=== PATIENT | female | born 1960 | race Caucasian/White ===

== ENCOUNTER 2020-06-26 12:30 | Outpatient (CLI) | payer OTHER, SELFPAY ==
--- NOTE | ~2020-06-26 | CT_ITS ---
EXAMINATION: CT sinus wo con DATE: 06/26/2020 12:59 INDICATION: Sinusitis TECHNIQUE: Computed tomography (CT) of the paranasal sinuses was performed without intravenous contra st. The dose-length product was 282.50 mGy-cm. Automated exposure control and iterative reconstructio n technique were employed. COMPARISON: None FINDINGS: There is mucosal thickening of the right maxillary and ethmoid sinuses. The right ostiomeat al unit is occluded. There is mild rightward nasal septal deviation. Left ostiomeatal unit is patent. Mastoids are pneumatized. No significant mucoperiosteal reaction. There is a right-sided dental Ryann present. IMPRESSION: 1. Moderate right maxillary and ethmoid sinusitis, likely chronic. Reviewed, dictated and finalized at location B. OR ENGINEERING ASSOCIATE
== END 2020-06-26 12:31 | disposition home or self-care (01) ==
PROVIDERS: PCP Internal Medicine; Visit Provider Otolaryngology
DX: J32.0 Chronic maxillary sinusitis (principal); J32.2 Chronic ethmoidal sinusitis; R09.81 Nasal congestion; J34.89 Other specified disorders of nose and nasal sinuses; R09.82 Postnasal drip
CPT/HCPCS: 70486

== ENCOUNTER → 2020-10-12 01:51 | Outpatient (CLI) | payer OTHER, SELFPAY ==
[2020-10-12 19:27] LABS: SARS-CoV-2 RNA PCR Negative
== END ==
PROVIDERS: PCP Internal Medicine; Visit Provider Internal Medicine Gastroenterology
DX: Z01.812 Encounter for preprocedural laboratory examination (principal); Z20.822 Contact with and (suspected) exposure to COVID-19
CPT/HCPCS: C9803; U0003; U0005

== ENCOUNTER 2020-10-12 13:05 | Emergency (ER) | payer OTHER, SELFPAY ==
[2020-10-12 13:07] VITALS: BP 115/92; PULSE 81; RESP 18; TEMP 36.4; O2SAT 99
--- NOTE | 2020-10-12 13:29 | ED.GENADULT ---
HPI - General Adult General Chief complaint: Psychiatric Symptoms Stated complaint: depression Time Seen by Provider: 10/12/20 13:17 Source: patient and family Mode of arrival: ambulatory Limitations: no limitations History of Present Illness HPI narrative: Patient is 60 years old white female presents with feeling overwhelmed in the last few days. Patient was seen by her family physician 1 week ago and try to schedule her for psych evaluation. Patient denies suicidal or homicidal ideation. Patient have some family issues, does not get along with her sibling, her mother recently. Patient used to be on antidepression medication, last use was over 12 years ago. Patient denies any fever, chills, nausea, vomiting, shortness of breath, chest pain or urinary symptoms. Patient also complaining of trouble sleeping at night, cannot stop her thinking. Related Data Home Medications Medication Instructions Recorded Confirmed diphenhydramine HCl 25 mg capsule 25 mg PO HS PRN 05/23/20 10/12/20 Allergies Allergy/AdvReac Type Severity Reaction Status Date / Time ampicillin Allergy Mild Other Verified 10/12/20 13:10 Review of Systems Review of Systems: Narrative: CONSTITUTIONAL: Denies fever, chills, or sweats. EYES: Denies visual changes, redness, or discharge. ENT: Denies rhinorrhea, congestion, sore throat, or otalgia. CARDIOVASCULAR: Denies chest pain, palpitations, or edema. RESPIRATORY: Denies cough or dyspnea. GASTROINTESTINAL: Denies abdominal pain, nausea, vomiting, or diarrhea. GENITOURINARY: Denies dysuria or hematuria. SKIN: Denies rash or itching. MUSCULOSKELETAL: Denies back pain, joint pain, or myalgia. NEUROLOGIC: Denies headache, numbness, or weakness. PSYCHIATRIC: Denies anxiety or depression. [facility] Past Medical History Medical History (Updated 10/12/20 @ 14:20 by Geo Hinkle MD) Depression Surgical History Surgical History History of oral surgery Hx of abdominal surgery Family History Family History Sibling Family history of malignant neoplasm of ovary Father Heart disease Cerebrovascular accident Mother , respiratory failure, COPD Depression Emphysema lung Breast cancer Social History Social History Smoking status: Never smoker Second hand tobacco smoke exposure: No Alcohol intake: current Drinks per week: 3 Substance use: never Substance use type: does not use Gender identity (if verbalized by the patient): Female Spiritual care concerns: No Exam Narrative: Exam Narrative: General appearance: Well-developed, well-nourished, patient is in tears Skin: Normal color Head: Normocephalic, nontraumatic Eyes: Clear conjunctiva ENT: Oropharynx normal, ears normal, nose normal Neck: Supple, nontender Chest and respiratory: Airway patent, no respiratory distress, no accessory muscle use Heart: Regular rate/rhythm Abdomen: Soft, nontender, no organomegaly, quiet bowel sounds Vascular: Normal peripheral pulses, normal capillary refill. Musculoskeletal: Normal range of motion, nontender back Neurologic: Alert and oriented ?3, PURCHASING OFFICER is normal as tested, no gross motor deficit Course Course Emergency Course: Improving Consultations Consultation #1: Dr. Mello. Agreed with starting patient on clonazepam for 1 week and start the patient on Effexor. And he is planning to find a psych consult for patient as soon as possible. Date: 10/12/20 Time: 13:37 Vital Signs Vital signs: Vital Signs Temperature 36.4 C L 10/12/20 13
[2020-10-12] MEDS: LORazepam (*CRX) 0.5 MG TABLET 1 MG PO (13:42)
[2020-10-12 14:54] VITALS: BP 113/87; PULSE 80; RESP 19; O2SAT 99
== END 2020-10-12 14:57 | disposition home or self-care (01) ==
PROVIDERS: Emergency Provider Emergency Medicine; PCP Internal Medicine
DX: F32.9 Major depressive disorder, single episode, unspecified (principal); G47.00 Insomnia, unspecified
CPT/HCPCS: 99283; A9270

== ENCOUNTER 2020-10-15 02:01 | Day surgery (SDC) | payer OTHER, SELFPAY ==
[2020-10-02 10:49] VITALS: BMI 17.8
[2020-10-15 09:29] VITALS: BP 100/64; PULSE 73; RESP 16; TEMP 36.4; O2SAT 98; BMI 16.9
[2020-10-15] MEDS: LACTATED RINGERS 1,000 ML 150 ML IV CONT (09:41)
--- NOTE | 2020-10-15 09:45 | PM.HPGS ---
History of Present Illness History of Present Illness Consent: Risks, benefits, and alternatives have been discussed and questions answered. Patient agrees to proceed with procedure. Chief complaint: melena Narrative: Destiny Steward is a 60 year old female here for first screening colonoscopy Review of Systems Constitutional: Constitutional: Denies headache(s) and Denies weakness Eyes: Eyes: Denies blurry vision ENT: Reports Normal hearing present, Denies headache(s) and Denies neck pain Cardiovascular: Cardiovascular: Denies chest pain and Denies dyspnea Respiratory: Respiratory: Denies dyspnea Gastrointestinal: Gastrointestinal: Reports no additional gastrointestinal complaints Genitourinary: Genitourinary: Denies dysuria Musculoskeletal: Musculoskeletal: Denies neck pain Integumentary/Breasts: Skin/Breast: Denies dry skin Neurologic: Reports Normal hearing present, Denies headache(s) and Denies weakness Psychiatric: Psychiatric: Denies anxiety Endocrine: Endocrine: Denies change in body appearance Hematologic/Lymphatic: Hematologic/Lymphatic: Denies easy bleeding Allergic/Immunologic: Allergic/Immunologic: Denies urticaria PMFSH Past Medical History Medical History (Updated 10/15/20 @ 09:45 by Barry Torres MD) Colon cancer screening Depression Surgical History Surgical History History of oral surgery Hx of abdominal surgery Family History Family History Sibling Family history of malignant neoplasm of ovary Father Heart disease Cerebrovascular accident Mother , respiratory failure, COPD Depression Emphysema lung Breast cancer Social History Social History Smoking status: Never smoker Second hand tobacco smoke exposure: No Alcohol intake: current Drinks per week: 3 Alcohol use details: WINE Substance use: never Substance use type: does not use Gender identity (if verbalized by the patient): Female Spiritual care concerns: No Meds Home Medications and Allergies Home Medications Medication Instructions Recorded Confirmed Type diphenhydramine HCl 25 mg capsule 25 mg PO HS PRN 05/23/20 10/12/20 History zolpidem 5 mg tablet 5 mg PO .hs PRN #30 tablet 05/29/20 10/12/20 Rx clonazepam 0.5 mg PO BID #14 tablet 10/12/20 10/15/20 Rx venlafaxine [Effexor XR] 37.5 mg PO DAILY #7 cap 10/12/20 10/15/20 Rx Allergies Allergy/AdvReac Type Severity Reaction Status Date / Time ampicillin Allergy Mild Other Verified 10/15/20 09:28 Vital Signs Vital Signs - 24 hr 10/15/20 09:29 Temperature 97.5 F L Pulse Rate 73 Respiratory Rate 16 Blood Pressure 100/64 Pulse Oximetry 98 Exam Const: General: comfortable and no acute distress HENMT: General nose exam: Normal nares present Eyes: General: appearance normal, both eyes and all related structures Neck: Neck: no JVD Resp: Auscultation: clear to auscultation bilaterally Cardio: Rate: regular rate Rhythm: regular rhythm GI: Inspection: non-distended GI Palp: Yes Soft to palpation Skin: General skin exam: normal color Neuro: General: gait normal Speech: normal speech Extrem: General: normal to inspection Psych: Mental Status: mental status grossly normal Assessment and Plan Assessment and plan (1) Colon cancer screening: Code(s): Z12.11 - Encounter for screening for malignant neoplasm of colon Status: Acute Assessment and Plan: proceed with colonoscopy
--- NOTE | 2020-10-15 09:46 | WPDANESEPPF ---
Anes - Initial Pre Proc Eval Procedure: Operation Date: 10/15/20 09:45 Proposed Procedures p Colonoscopy - Barry Torres MD Date/Time: 10/15/20 09:46 Surgeon: Barry Torres MD Pre Op Diagnosis: melena Patient Data Age: 60 Gender: F Height: 5 ft 6 in Weight: 47.8 kg Last Vital Signs Temp 97.5 F L 10/15/20 09:29 Pulse 73 10/15/20 09:29 Resp 16 10/15/20 09:29 BP 100/64 10/15/20 09:29 Pulse Ox 98 10/15/20 09:29 Allergies Allergy/AdvReac Type Severity Reaction Status Date / Time ampicillin Allergy Mild Other Verified 10/15/20 09:28 Home Medications Medication Instructions Recorded Confirmed Type diphenhydramine HCl 25 mg capsule 25 mg PO HS PRN 05/23/20 10/12/20 History zolpidem 5 mg tablet 5 mg PO .hs PRN #30 tablet 05/29/20 10/12/20 Rx clonazepam 0.5 mg PO BID #14 tablet 10/12/20 10/15/20 Rx venlafaxine [Effexor XR] 37.5 mg PO DAILY #7 cap 10/12/20 10/15/20 Rx Patient hx anesthesia problems: none Family hx anesthesia problems: none PMFSH Past Medical History Medical History (Updated 10/15/20 @ 09:45 by Barry Torres MD) Colon cancer screening Depression Surgical History Surgical History History of oral surgery Hx of abdominal surgery Family History Family History Sibling Family history of malignant neoplasm of ovary Father Heart disease Cerebrovascular accident Mother , respiratory failure, COPD Depression Emphysema lung Breast cancer Social History Social History Smoking status: Never smoker Second hand tobacco smoke exposure: No Alcohol intake: current Drinks per week: 3 Alcohol use details: WINE Substance use: never Substance use type: does not use Gender identity (if verbalized by the patient): Female Spiritual care concerns: No Anes - Eval Final PreProcedure Day of Procedure 10/15/20 09:46 Patient weight: normal Heart: regular rate and rhythm Lungs: clear to auscultation Airway: Mallampati scale class II Neurological: alert and oriented Last oral intake: >/= 8 hours ASA classification: II Emergent: no Anesthetic plan: proceed Anesthesia type and monitoring: general GIVS and standard monitoring Informed Consent: The patient's anesthetic plan and its attendant risks and benefits were discussed with the patient/family/POA. Questions were solicited and answers provided to the satisfaction of the patient/family/POA.
[2020-10-15 10:08] VITALS: BP 80/41; PULSE 63; RESP 13; O2SAT 98
[2020-10-15 10:18] VITALS: BP 94/54; PULSE 59; RESP 14; O2SAT 100
[2020-10-15 10:28] VITALS: BP 98/63; PULSE 53; RESP 16; O2SAT 100
== END 2020-10-15 10:30 | disposition home or self-care (01) ==
PROVIDERS: PCP Internal Medicine; Visit Provider Internal Medicine Gastroenterology
PROC: 0DJD8ZZ Inspection of Lower Intestinal Tract, Via Natural or Artificial Opening Endoscopic (ICD-10-PCS; CPT 45378; principal; 2020-10-15 09:45)
DX: Z12.11 Encounter for screening for malignant neoplasm of colon (principal); K63.5 Polyp of colon; D12.3 Benign neoplasm of transverse colon; F32.9 Major depressive disorder, single episode, unspecified
CPT/HCPCS: 45385; 88305; C9803; J2001; J2704; J7120; U0003; U0005

== ENCOUNTER 2021-10-02 12:31 | Outpatient (CLI) | payer OTHER, SELFPAY ==
--- NOTE | ~2021-10-02 | MR_ITS ---
EXAMINATION: MR IAC wo/w con DATE: 10/02/2021 13:36 INDICATION: Bilateral sensorineural hearing loss. TECHNIQUE: Magnetic resonance imaging (MRI) of the brain, brainstem, and internal auditory canals was performed without and with 10 mL MultiHance intravenous contrast. Sequences included sagittal and ax ial T1-weighted FSE, axial diffusion-weighted FS EPI, axial T2*-weighted GRE, axial T2-weighted FLAIR Propeller, axial T2-weighted Propeller, small ajfij-vh-xllm coronal FIESTA, small nhulp-fa-qecb troy nal T1-weighted FSE, and small vppoi-oj-ceod axial T1-weighted SPGR. Postcontrast sequences included axial T1-weighted FSE, small uroqv-pa-djiv coronal T1-weighted FSE, and small ylkgv-ua-inbq axial T1- weighted SPGR. Apparent diffusion coefficient (ADC) maps were created. COMPARISON: Sinuses CT 06/26/2020 FINDINGS: There is no intracranial hemorrhage, acute infarction, or abnormal intracranial mass lesion . There are scattered areas of nonspecific increased T2-weighted signal intensity in the cerebral whi te matter, which is within normal limits for the patient's age. The ventricles are normal in size. Th e internal auditory canals and inner and middle ears are normal. The mastoid air cells are normal. Th e orbits are normal. The paranasal sinuses are clear. IMPRESSION: 1. Normal aging brain. Reviewed, dictated and finalized at location A. D KEEPER IMPRESSION: 1. Normal aging brain.
== END 2021-10-02 12:32 | disposition home or self-care (01) ==
PROVIDERS: PCP Internal Medicine; Visit Provider Otolaryngology
DX: H90.3 Sensorineural hearing loss, bilateral (principal)
CPT/HCPCS: 70553; A9577

== ENCOUNTER 2022-09-16 12:50 | Outpatient (CLI) | payer OTHER, SELFPAY ==
--- NOTE | ~2022-09-16 | DEXA_ITS ---
Bone Density Report Name: YADIEL CUEVA Age: 61 Sex: Female Ethnicity: White Date of : 1960 Indication: postmenopausal; screening for osteoporosis; height loss; asthma or emphysema; Referring Provider: MISHEL DONNELLY Study: Bone densitometry was performed. Exam Date: September 16, 2022 Accession number: [id number] Bone Density: Region BMD T-score Z-score Classification AP Spine(L1-L4) 0.663 -3.5 -2.0 Osteoporosis Femoral Neck (Left) 0.541 -2.8 -1.4 Osteoporosis Total Hip (Left) 0.658 -2.3 -1.3 Osteopenia Femoral Neck (Right) 0.516 -3.0 -1.7 Osteoporosis Total Hip (Right) 0.674 -2.2 -1.2 Osteopenia Total Hip Mean 0.666 -2.3 -1.3 Osteopenia World Health Organization criteria for BMD impression classify patients as: Normal (T-score at or above -1.0), Osteopenia (T-score between -1.0 and -2.5), or Osteoporosis (T-score at or below -2.5). 10-year Fracture Risk: FRAX not reported because: Some T-score for Spine Total or Hip Total or Femoral Neck at or below -2.5 Clinical Information Provided by Patient: Has the following medical conditions: Asthma or Emphysema Patient maximum height was 66 Menopause Age: 51 Drinks caffeinated beverages Onset of menses at age 14 Number of children 2 Impression: The patient has osteoporosis, based on the Total Spine T-score. Discussion: HIGH RISK OF FRACTURE. BONE DENSITY IS UNDESIRABLY LOW AT ONE OR MORE SKELETAL SITES, CONSISTENT WITH OSTEOPOROSIS. ALSO, BONE DENSITY IS LOWER THAN EXPECTED FOR AGE AND SEX AT ONE OR MORE SKELETAL SITES; RECOMMEND A DILIGENT SEARCH FOR SECONDARY CAUSES OF BONE LOSS. This patient's lowest T-score meets the World Health Organization's (WHO) criteria for osteoporosis at one or more sites (T-score -2.5 or below). In untreated patients, the risk of osteoporotic fracture increases approximately two-fold for each 1.0 SD decrease in T-score. Low bone density is not the only risk factor for fracture; also consider factors such as patient's age, frailty or poor health, risk of falling, risk of injury, previous osteoporotic fracture, family history of osteoporosis, cigarette smoking, low body weight, etc. Not everyone with low bone mineral density has osteoporosis; osteomalacia and other metabolic bone disorders should also be considered. Patients who have osteoporosis should be evaluated for specific diseases and conditions (secondary causes) that may cause or contribute to bone loss. The [place] Association [employer] Clinical Endocrinologists (AACE) and National Osteoporosis Foundation (NOF) recommend pharmacologic intervention for all postmenopausal women whose T-score is in this range. Also, this patient's bone mineral density is below the range considered normal for healthy age-, sex-, and race-matched controls at least one site (Z-sco
== END 2022-09-16 12:51 | disposition home or self-care (01) ==
PROVIDERS: PCP Internal Medicine; Visit Provider Internal Medicine
DX: Z13.820 Encounter for screening for osteoporosis (principal); Z78.0 Asymptomatic menopausal state; M81.0 Age-related osteoporosis without current pathological fracture; M85.89 Other specified disorders of bone density and structure, multiple sites
CPT/HCPCS: 77080

== ENCOUNTER 2023-07-02 11:27 | Outpatient (CLI) | payer OTHER, SELFPAY ==
[2023-07-02 12:35] LABS: Appearance Urine Clear (Clear); Bilirubin Urine Negative (Negative); Blood Urine Negative (Negative); Color Urine Yellow (Yellow); Glucose Urine UA Negative (Negative); Ketones Urine Negative (Negative); Leukocyte Esterase Ur Negative LEU/UL (NEGATIVE); Nitrate Urine Negative (Negative); Protein Urine Negative (Negative); Specific Grav Ur 1.004 (1.001-1.035); Urobilinogen Urine 0.2 mg/dL (<2.0); pH Urine 7.5 (5.0-9.0)
[2023-07-02 12:40] LABS: Add Urine Microscopic? NO
== END 2023-07-02 11:28 | disposition home or self-care (01) ==
PROVIDERS: PCP Internal Medicine; Visit Provider Physician Assistant
DX: R30.0 Dysuria (principal)
CPT/HCPCS: 81003; 87086

== ENCOUNTER 2023-10-06 15:36 | Outpatient (CLI) | payer OTHER, SELFPAY ==
--- NOTE | ~2023-10-06 | MM_ITS ---
EXAMINATION: MM screening tushar BI w umm HISTORY: Screening mammogram TECHNIQUE: Craniocaudal and mediolateral oblique 3-D tomosynthesis images were obtained and synthetic 2-D images were generated. CAD analysis was submitted and interpreted. COMPARISON: No prior mammogram is available for comparison at this institution. BREAST PARENCHYMAL COMPOSITION: The breasts are heterogeneously dense, which may obscure small masses . FINDINGS: There is no evidence of suspicious mass, calcification, or architectural distortion to sugg est malignancy in either breast. There has been no suspicious interval change. IMPRESSION: 1. No mammographic evidence of malignancy. 2. Recommend routine screening mammography in one year. BI-RADS Category 1: Negative Reviewed, dictated and finalized at location A.
== END 2023-10-06 15:37 | disposition home or self-care (01) ==
PROVIDERS: PCP Internal Medicine; Visit Provider Obstetrics & Gynecology
DX: Z12.31 Encounter for screening mammogram for malignant neoplasm of breast (principal)
CPT/HCPCS: 77063; 77067

== ENCOUNTER 2024-05-17 08:40 | Outpatient (CLI) | payer OTHER, SELFPAY ==
--- NOTE | ~2024-05-17 | US_ITS ---
US abdomen limited INDICATION: Abdomen pain PROCEDURE: Realtime right upper abdominal ultrasound. COMPARISON: No prior studies for comparison. FINDINGS: The pancreas is normal without focal mass or pancreatic ductal dilation. Liver echotexture is normal without focal mass or intrahepatic biliary dilatation. There is normal directional flow i n the portal vein. The gallbladder is normal without stones, gallbladder wall thickening or pericholecystic fluid. Comm on bile duct measures 3 mm. No sonographic Choi's sign. IMPRESSION: 1: Normal limited abdominal ultrasound. Reviewed, dictated and finalized at location B.
== END 2024-05-17 08:41 | disposition home or self-care (01) ==
LOC: GOSHIMG 08:41
PROVIDERS: PCP Internal Medicine; Visit Provider Internal Medicine
DX: R10.9 Unspecified abdominal pain (principal)
CPT/HCPCS: 76705

== ENCOUNTER 2025-03-16 16:02 | Emergency (ER) | payer OTHER, SELFPAY ==
--- NOTE | ~2025-03-16 | XR_ITS ---
EXAMINATION: XR chest 1V portable 03/16/2025 16:54 INDICATION: Dizzy TECHNIQUE:A single portable AP supine frontal image of the chest was obtained. COMPARISON: None available FINDINGS: The lungs are clear. The cardiomediastinal silhouette is within normal limits. There are no pleural effusions. There is no pneumothorax suspected. IMPRESSION: 1: NO ACUTE CARDIOPULMONARY DISEASE. Reviewed, dictated and finalized at location Q.
--- NOTE | ~2025-03-16 | CT_ITS ---
EXAMINATION: CT brain wo con DATE: 03/16/2025 17:28 INDICATION: Dizziness/vertigo TECHNIQUE: Computed tomography (CT) of the head was performed without intravenous contrast. The dose-length product was 605.33 mGy-cm. COMPARISON: None FINDINGS: No acute intracranial hemorrhage. No mass effect. No midline shift. No hydrocephalus. No skull fracture. Visualized paranasal sinuses and mastoid air cells are clear. IMPRESSION: 1. No acute intracranial hemorrhage. No mass effect. Reviewed, dictated and finalized at location Q.
--- OUTSIDE RECORDS SUMMARY | 2025-03-16 16:05 | XMS_ITS | Clinical Summary ---
Author Organization [facility] Address [address] [place] [address] Care Team Providers Care Grants Director Name Role Phone Erik Mello MD Primary Care Provider [phone] Allergies Active Allergy Reactions Criticality Noted Date Comments Ampicillin Hives 04/16/2021 Was able to take medication (augmentin) from the same family - caused diarrhea Tilactase GI Upset 04/16/2021 Shellfish-Derived Products GI Upset (scallops specifically) Medications clonazePAM 0.5 MG tablet Take 0.5 tablets by mouth nightly as needed. 12/18/2020 Active escitalopram 10 MG tablet Take 10 mg by mouth daily. Active Multiple Vitamin (MULTIVITAMIN ADULT OR) Take 1 tablet by mouth daily. Active HYDROcodone-xiomara taminophen (NORCO) 5-325 MG tabletIndicatio ns:Acute Pain < 7 Day Supply Take 1 tablet by mouth every 4 (four) hours as needed. Indications: Acute Pain < 7 Day Supply 10 tablet 04/19/2021 Active Active Problems No known active problems Immunizations Immunization Administration Dates Next Due PFIZER COVID-19 (ORIGINAL FO RMULATION, PURPLE CAP) mRNA, LNP-S, PF, 30 MCG/0.3 ML DOSE 11/12/2020,10/22/2020 Family History Medical History Relation Comments Heart Disease Father Hypertension Father Cancer Mother lung and breast Relation Status Comments Daughter Alive Father Mother lung and breast cancer, pna Son Alive Social History Tobacco Use Types Packs/Day Years Used Date Smoking Tobacco: Never Smokeless Tobacco: Never Alcohol Use Standard Drinks/Week Comments Not Currently 0 (1 standard drink = 0.6 oz pur e alcohol) socially Comments No Sex and Gender Information Value Date Recorded Sex Assigned at Not on file Legal Sex Female 10:28 AM CDT Gender Identity Not on file Sexual Orientation Not on file Last Filed Vital Signs Vital Sign Reading Time Taken Comments Blood Pressure 121/69 04/19/2021 11:27 AM CDT Pulse 50 04/19/2021 11:27 AM CDT Temperature 36.7 C (98.1 F) 04/19/2021 11:27 AM CDT Respiratory Rate 18 04/19/2021 11:27 AM CDT Oxygen Saturation 97% 04/19/2021 11:27 AM CDT Inhaled Oxygen Concentration - - Weight 52.7 kg (116 lb 2.9 oz) 04/19/2021 7:32 A M CDT Height 167.6 cm (5' 6) 04/19/2021 7:32 AM CDT Body Mass Index 18.75 04/19/2021 7:32 AM CDT Plan of Treatment Health Maintenance Due Date Last Done Comments Cervical Cancer Screening Pa p Smear (Age 30 to 64) Every 3 Years 1960 Colorectal Cancer Screening Colonoscopy (10 Years) 1960 Annual Physical 1964 DTaP, Tdap and Td Vaccines ( 1 - Tdap) 1980 Cervical Cancer Screening Pa p with HPV Testing (Age 30 to 64) Every 5 Years 10/12/1991 Cervical Cancer Screening wi th HPV 10/12/1991 Mammogram Screening 2001 Pneumococcal Vaccine: 50+ Years (1 of 1 - PCV) 10/12/2011 Zoster Vaccines (1 of 2) 10/12/2011 COVID-19 Vaccine (3 - 2023-2 5 season) 2024 11/12/2020, 10/22/2020 RSV Immunization or 60+ Years (1 - 1-dose 75+ series) 2036 Hepatitis C Completed 09/02/2020 Meningococcal B Vaccine Aged Out No l onger eligible based on patient's age to complete this topic Meningococcal Vaccine Aged Out No inga christine eligible based on patient's age to complete this topic RSV Immunizations Under 20 Months Aged Out No longer eligible b ased on patient's age to complete this topic Insurance [facility] Care Teams Grants Director Relationship Specialty Start Date End Date Erik Mello MD [address] [place] [address] PCP - General INTERNAL MEDICINE 04/16/21
--- OUTSIDE RECORDS SUMMARY | 2025-03-16 16:05 | XMS_ITS | Patient Health Record ---
Author Organization [facility] Address [address] [facility] [address] [place] [address] Care Team Providers Care Quality Control Inspector Name Role Phone González Mata Unavailable [phone] Reason For Referral No Information Medications Medication SIG (Take, Route, Frequency, Duration) Notes Start Date End Date Status oxyCODONE-Acetaminophe n 5-325 MG Tablet Oral Active Venlafaxine HCl ER 37.5 MG Capsule Extended Release 24 Hour Oral Active Cefuroxime Axetil 250 MG Tablet Oral Active Ondansetron HCl 4 MG Tablet Oral Active Fluticasone Propionate Diskus 50 MCG/ACT Aerosol Powder Breath Activated Inhalation *Reorder from appssavvy for eRx and Interaction Alerts* Active Suprep Bowel Prep Kit 17.5-3.13-1.6 GM/177ML Solution Oral Active clonazePAM 0.5 MG Tablet Disintegrating Oral Active Azelastine HCl 137 MCG/SPRAY Solution Nasal Active Zolpidem Tartrate 5 MG Tablet Oral Active Social History Social History Additional Details Category Social Info Options Details Migrated Social History Migrated Social History Tobacco Years: Never smoker 10/12/2020 Plan Of Treatment No Information Insurance Providers Payer Name Payer Address Payer Phone Subscriber Number Group Number Insured Name Patient Relationship to Insured Coverage Start Date Coverage End Date [facility] [address] [place] [phone] [id number] ANUPAM CASTAÑEDA Spouse - patient is the spouse of the insured
--- NOTE | 2025-03-16 16:06 | ECG_ITS ---
Test Date: 2025-03-16 16:12:08 Measurements Intervals [place] Rate: 62 P: 69 MI: 152 QRS: -24 QRSD: 97 T: 63 QT: 431 QTc: 439 Interpretive Statements SINUS RHYTHM BORDERLINE ST ABNORMALITY- ANTEROLATERAL LEADS BASELINE ARTIFACT- I, II, III, AVR, AVL, AVF, V1, V4-V6 BORDERLINE ECG No previous ECG available for comparison Electronically Signed On 03-16-2025 16:33:46 CDT by Colt Paulino D.O.
[2025-03-16 16:08] VITALS: BP 125/67; PULSE 77; RESP 20; TEMP 36.4; O2SAT 100
[2025-03-16 16:36] LABS: Hematocrit 40.3 % (37.0-47.0); Hemoglobin 13.9 g/dL (12.0-15.0); Immature Granulocyte Percent A 0.1 % (0-0.5); Lymphocytes Absolute Auto 1.96 K/mm3 (0.9-3.2); Mean Corpuscular HGB Conc 34.5 g/dl (32-36); Mean Corpuscular Hemoglobin 31.7 pg (26-34); Mean Corpuscular Volume 91.8 fl (80-100); Nucleated Red Blood Cells Absolute Auto 0.000 K/mm3 (0.0-0.012); Nucleated Red Blood Cells Perc 0.0 % (0.0-0.2); Platelet Count Result 365 k/mm3 (150-375); Red Blood Count 4.39 M/mm3 (4.2-5.4); White Blood Count 9.0 K/mm3 (4.5-10.0)
[2025-03-16 16:50] LABS: Alanine Aminotransferase 20 U/L (6-35); Albumin Level 4.7 g/dL (3.5-5.1); Alkaline Phosphatase 79 U/L (38-126); Anion Gap 10 mmol/L (4-12); Aspartate Amino Transferase 37 U/L (14-36); Bilirubin,Total 1.0 mg/dL (0.2-1.3); Blood Urea Nitrogen 16 mg/dL (7-17); Calcium 9.8 mg/dL (8.4-10.2); Carbon Dioxide 22 mmol/L (22-30); Chloride 105 mmol/L (98-107); Estimated CRCL calculation 71 ml/min; Estimated Glomerular Filt Rate > 60; Glucose 130 mg/dL (65-110); Potassium 3.8 mmol/L (3.4-5.0); Sodium 137 mmol/L (137-145); Total Protein 7.9 g/dL (6.3-8.2)
--- NOTE | 2025-03-16 17:08 | ED.DIZZY ---
HPI - Dizziness General Chief Complaint: Dizziness Stated Complaint: dizziness since 0800 Time Seen by Provider: 03/16/25 16:09 Source: patient Mode of arrival: ambulatory Limitations: no limitations History of Present Illness HPI Narrative: Patient is a 64-year-old female who presents the ED with report of dizziness. Patient reports she has had persistent dizziness since around 8:00 a.m. this morning. Described it as room spinning. Reports it is worse with walking, opening her eyes. Reports history of vertigo, but does not currently take any medications of this. Has had similar episodes of dizziness in the past. She tried doing the Viola maneuver at home but denied improvement. She then developed nausea and vomiting this afternoon, which prompted her presentation. She does still feel nauseous currently. Denies headaches, vision changes, focal numbness or weakness, chest pain, shortness of breath, slurred speech, confusion. Related Data Home Medications ?Medication ?Instructions ?Recorded ?Confirmed ?Last Taken ?Type clonazepam 0.5 mg tablet 0.5 mg PO QHS PRN 08/15/22 05/04/24 Unknown History escitalopram oxalate 10 mg tablet 5 mg PO DAILY 08/15/22 05/04/24 Unknown History Allergies Allergy/AdvReac Type Severity Reaction Status Date / Time Cephalosporins Allergy Intermediate Rash Verified 05/04/24 08:51 ampicillin Allergy Mild Other Verified 05/04/24 08:51 Review of Systems Review of Systems: All systems reviewed & are unremarkable except as noted in HPI. All systems reviewed & are unremarkable except as noted in HPI and below PMFSH Past Medical History Medical History Gallstones Hearing loss Screening mammogram, encounter for YULY positive Colon cancer screening Depression Surgical History Surgical History H/O sinus surgery History of oral surgery Hx of abdominal surgery Family History Family History Sibling Family history of malignant neoplasm of ovary Father Heart disease Cerebrovascular accident Mother , respiratory failure, COPD Depression Emphysema lung Breast cancer Social History Social History Smoking status: Never smoker Second hand tobacco smoke exposure: No Alcohol intake: current Drinks per week: 3 Alcohol use details: WINE Substance use: never Substance use type: does not use Do You Feel Safe in your Home?: Yes Lack of Transportation: No Lack of Food: Never True Current Housing: Decline to Answer Concerned About Future Housing: Decline to Answer Difficulty Paying Gas/Electric Bills: Decline to Answer Difficulty Paying for Meds: Decline to Answer Currently Unemployed: Decline to Answer Education: Decline to Answer Difficulty w/ Childcare or Family Care: Decline to Answer Living arrangements: with family Additional living arrangements comments: Occupation/Education: occupation Additional occupation/education comments: [employer] Gender identity (if verbalized by the patient): Female Sexual Orientation (if Verbalized by the Patient): Straight or Heterosexual Spiritual care concerns: No Exam Narrative: GENERAL: Well appearing, thin, non-toxic, in no acute distress. HEAD: Normocephalic, atraumatic. EYES: PERRL/EOMI, conjunctivae clear bilaterally. No appreciable nystagmus, but patient does report dizziness w/ looking L/R. NECK: Supple. No meningeal signs. RESPIRATORY: Airway patent, respirations nonlabored. Clear to auscultation bilaterally, no rales, rhonchi, wheezing. CARDIOVASCULAR: Regular rate and rhythm without murmurs, rubs, or gallops. Peripheral pulses 2+ and equal bilaterally. MUSCULOSKELETAL: Moves all extremities. No gross deformities. SKIN: Warm, dry, normal color. No rashes. NEURO: A&O X3. Speech clear. Follows commands. CN II-XII intact. Sensation grossly intact. Steady gait. No ataxic movements. Strength 5/5 in upper and lower extremities bilaterally. Equal diesel crane operator strength bilaterally. PSYCHIATRIC: Appropriate mood and affect. Normal interaction. Course Vital Signs Vital signs: Vital Signs Temperature 97.5 F L 03/16/25 16:08 Pulse Rate 77 03/16/25 16:08 Respiratory Rate 20 03/16/25 16:08 Blood Pressure 125/67 03/16/25 16:08 Pulse Oximetry 100 03/16/25 16:08 Oxygen Delivery Room Air 03/16/25 16:08 Temperature 97.5 F L 03/16/25 16:08 Pulse Rate 57 L 03/16/25 17:40 Respiratory Rate 16 03/16/25 17:40 Blood Pressure 136/73 08/21/25 17:40 Pulse Oximetry 100 03/16/25 17:40 Oxygen Delivery Room Air 03/16/25 16:08 MDM - Dizziness MDM Narrative Medical decision making narrative: Patient presented to ED with dizziness since this morning. History of vertigo. Vital signs stable upon arrival here today. Patient is neurologically intact upon my exam. No appreciable focal deficits. Does seem most consistent with peripheral process, reporting dizziness with looking left and right, keeping eyes open, associated nausea and vomiting. CT brain was obtained and without acute findings. EKG with sinus rhythm, no significant concerning ST changes. Troponin undetectable Chest x-ray clear Basic laboratory studies are otherwise unremarkable. Patient given fluids, Benadryl, Reglan, meclizine. On re-evaluation, she is feeling significantly improved. Dizziness and nausea are much improved. Discussed overall reassuring workup, high likelihood of BPPV. Feel patient is safe for discharge home at this time. Will discharge with meclizine and Zofran for home use. She does not currently take any medications for her vertigo. Advised close follow-up with PCP. Will also refer to neurology. Advised to call office to make appointment. Risk factors for central causes of vertigo and reasons to return to the ED reviewed, including persistent symptoms, focal weakness, slurred speech, confusion, or vision changes. Patient felt to be a reasonable candidate for continued outpatient management and risks are felt to outweigh benefits for further imaging studies at this time. Discharged in stable condition Medical Records Attestation: I reviewed the patient's medical records. Lab Data Attestation: I reviewed the patient's lab results. 03/16/25 16:26 03/16/25 16:26 Labs: Lab Results 03/16/25 Range/Units 16:26 WBC 9.0 (4.5-10.0) K/mm3 RBC 4.39 (4.2-5.4) M/mm3 Hgb 13.9 (12.0-15.0) g/dL Hct 40.3 (37.0-47.0) % MCV 91.8 (80-100) fl MCH 31.7 (26-34) pg MCHC 34.5 (32-36) g/dl RDW 12.4 (11.5-14.5) % Plt Count 365 (150-375) k/mm3 MPV 9.7 (7.4-10.4) fl Immature Gran % (Auto) 0.1 (0-0.5) % Neut % (Auto) 72.8 (45.5-73.1) % Lymph % (Auto) 21.9 (18.3-44.2) % [place] % (Auto) 4.7 (2.6-8.5) % Eos % (Auto) 0.1 (0-4.4) % Baso % (Auto) 0.4 (0.2-1.2) % Lymph # (Auto) 1.96 (0.9-3.2) K/mm3 [place] # (Auto) 0.4 (0.1-0.6) K/mm3 Eos # (Auto) 0.0 (0-0.3) K/mm3 Baso # (Auto) 0.0 (0.0-0.1) K/mm3 Abs Immat Gran (auto) 0.01 (0.00-0.031) K/mm3 Absolute Neuts (auto) 6.5 (1.3-6.7) K/mm3 Absolute Nucleated RBC 0.000 (0.0-0.012) K/mm3 Nucleated RBC % 0.0 (0.0-0.2) % Sodium 137 (137-145) mmol/L Potassium 3.8 (3.4-5.0) mmol/L Chloride 105 (98-107) mmol/L Carbon Dioxide 22 (22-30) mmol/L Anion Gap 10 (4-12) mmol/L BUN 16 (7-17) mg/dL Creatinine 0.60 L (0.7-1.0) mg/dL Estim Creat Clear Calc 71 ml/min Estimated GFR > 60 (59 - ) Glucose 130 H (65-110) mg/dL Calcium 9.8 (8.4-10.2) mg/dL Magnesium 1.8 (1.6-2.3) mg/dL Total Bilirubin 1.0 (0.2-1.3) mg/dL AST 37 H (14-36) U/L ALT 20 (6-35) U/L Alkaline Phosphatase 79 (38-126) U/L Troponin I < 0.012 (0.000-0.034) ng/mL Total Protein 7.9 (6.3-8.2) g/dL Albumin 4.7 (3.5-5.1) g/dL Imaging Data Attestation: I personally reviewed and interpreted this imaging study as follows: Radiologist's impression: ITS Impressions Chest X-Ray 03/16/25 16:58 IMPRESSION: 1: NO ACUTE CARDIOPULMONARY DISEASE. Head CT 03/16/25 17:37 IMPRESSION: 1. No acute intracranial hemorrhage. No mass effect. ECG Data EKG #1: Attestation: I personally reviewed and interpreted this ECG as follows: ECG completion date: 03/16/25 ECG completion time: 16:12 EKG Interpretation: normal rate (62), sinus rhythm and non-specific ST changes Discharge Plan Discharge Clinical Impression: Benign paroxysmal positional vertigo Qualifiers: Laterality: unspecified laterality Qualified Code(s): H81.10 - Benign paroxysmal vertigo, unspecified ear Patient Disposition: Home Condition: Stable Instructions: Antibiotic Form, Vertigo (ED), Benign Paroxysmal Positional Vertigo (ED), Dizziness (ED) Additional Instructions: Your workup here was reassuring. You likely have benign paroxysmal positional vertigo. You may trial Viola maneuver as needed. Recommend meclizine as needed for further dizziness. Recommend Zofran as needed for further nausea. Stay well hydrated. Follow-up closely with your primary care doctor. I have also provided neurology information for follow-up. You may call office to make appointment. Return to the ED if you experience worsening or severe symptoms, passing out, vision changes, severe headache, numbness or weakness of arm or leg, slurred speech, difficulty walking, chest pain, difficulty breathing, unable to keep down food or drink, or any other symptoms of concern. Patient Language: Ukrainian Prescriptions: New meclizine 25 mg tablet 25 mg PO TID PRN (Reason: dizziness) Qty: 30 0RF ondansetron 4 mg tablet,disintegrating 4 mg PO Q8H PRN (Reason: nausea and vomiting) Qty: 20 0RF No Action escitalopram oxalate 10 mg tablet 5 mg PO DAILY clonazepam 0.5 mg tablet 0.5 mg PO QHS PRN Rx Instructions: administer 30 minutes before bedtime pantoprazole [Protonix] 20 mg tablet,delayed release (DR/EC) 20 mg PO QAM Qty: 90 0RF Follow-up/Referrals: Roxann Noonan MD [Physician, Neurology] Referral Note: NEUROLOGY Cristian Cao DO [Primary Care Provider, Internal Medicine] Time of Disposition: 18:41
[2025-03-16] MEDS: SODIUM CHLORIDE 0.9% IV 1,000 ML 999 ML IV CONT (17:12)
[2025-03-16] MEDS: METOCLOPRAMIDE HCL INJ 10 MG/2 ML VIAL IV PUSH (17:12)
[2025-03-16] MEDS: MECLIZINE HCL 25 MG TABLET PO (17:35)
[2025-03-16 17:38] LABS: Magnesium 1.8 mg/dL (1.6-2.3)
[2025-03-16 17:40] VITALS: BP 136/73; PULSE 57; RESP 16; O2SAT 100
[2025-03-16 17:50] LABS: Troponin I < 0.012 ng/mL (0.000-0.034)
--- OUTSIDE RECORDS SUMMARY | 2025-03-16 18:33 | XMS_ITS | Clinical Summary ---
Author Organization [facility] Address [address] [place] [address] Care Team Providers Care Global Vp Creative + Content Marketing Name Role Phone Erik Mello MD Primary Care Provider Allergies Active Allergy Reactions Criticality Noted Date [...] patient's age to complete this topic Insurance [facility] Care Teams Global Vp Creative + Content Marketing Relationship Specialty Start Date End Date Erik Mello MD [address] [place] [address] PCP - General INTERNAL MEDICINE 04/16/21
--- OUTSIDE RECORDS SUMMARY | 2025-03-16 18:33 | XMS_ITS | Clinical Summary ---
Author Organization [facility] Address [address] [place] [address] Care Team Providers Care Hardware Engineering Manager Name Role Phone Erik Mello DO Primary Care Provider [phone] Source Comments [facility],non-owned Affiliates and Associated Physician Practices is amultiple site organization consisting of ambulatory clinics and hospital sitesin [place], [place], [place] and [place]. This disclosure is being madepursuant to the Care Everywhere program and may not contain all information available regarding this patient. Last updated 18.[facility] Allergies Active Allergy Reactions Criticality Noted Date Comments Ampicillin Urticaria Medium 09/02/2020 Cephalosporins Other 11/06/2022 Hallucinations, anxiety Lactase GI Discomfort 04/16/2021 Shellfish-Derived Products GI Discomfort 2020 (scallops specifically) Medications * Be aware that medications may not be up to date on this document. Alwaysverify current medications with the patient. Multiple Vitamins-Minera ls (MULTIVITAMIN ADULTS PO) Take 1 tablet by mouth once daily Active clonazePAM (KlonoPIN) 0.5 MG tablet Take 1 (one) tablet by mouth once daily as needed 05/12/2022 Active escitalopram (Lexapro) 10 MG tablet Take 5 mg by mouth once daily 05/12/2022 Active fluticasone propionate (Flonase) 50 MCG/ACT nasal spray Voss 2 (two) sprays into each nostril once daily as needed Active [place]-3 Fatty Acids (fish oil) 1000 MG capsule Take 1 (one) capsule by mouth once daily Active melatonin 3 MG tablet Take 2 (two) tablets by mouth at bedtime Active Social History Tobacco Use Types Packs/Day Years Used Date Smoking Tobacco: Never Smokeless Tobacco: Never Alcohol Use Standard Drinks/Week Comments Yes 0 (1 standard drink = 0.6 oz pur e alcohol) occasionally PHQ-2 Answer Date Recorded PHQ2 TOTAL SCORE 1 11/06/2022 Comments No Sex and Gender Information Value Date Recorded Sex Assigned at Not on file Legal Sex Female 2:11 PM WASHHOUSE HAND Gender Identity Not on file Sexual Orientation Not on file Last Filed Vital Signs Vital Sign Reading Time Taken Comments Blood Pressure 106/72 11/06/2022 12:56 PM CDT Pulse 58 11/06/2022 12:56 PM CDT Temperature 36.8 C (98.2 F) 11/06/2022 12:56 PM CDT Respiratory Rate 20 09/02/2020 3:10 PM WASHHOUSE HAND Oxygen Saturation 100% 09/02/2020 3:10 PM WASHHOUSE HAND Inhaled Oxygen Concentration - - Weight 55.8 kg (123 lb) 11/06/2022 12:56 PM CDT Height 165.1 cm (5' 5) 11/06/2022 12:56 PM CDT Body Mass Index 20.47 11/06/2022 12:56 PM CDT Plan of Treatment Health Maintenance Due Date Last Done Comments COLOGUARD (AGES 45-75) - COL ON CA SCREENING 1961 COLON MONITORING 1961 COLONOSCOPY - COLON CA SCREENING 1961 CT COLONOGRAPHY - COLON CA SCREENING 1961 Colorectal Cancer Screening 1961 FIT - COLON CA SCREENING 1961 FLEX SIG - COLON CA SCREENING 1961 LIPID TESTING 1961 DTAP/TDAP/TD VACCINES (1 - Tdap) 1980 PAP SMEAR 1982 PNEUMOCOCCAL VACCINE 50+ (1 of 1 - PCV) 10/12/2011 ZOSTER VACCINE (1 of 2) 10/12/2011 MAMMOGRAM 11/04/2015 11/03/2013, 04/19/2012 COVID-19 VACCINE (2023-2 5 season) 2024 11/12/2020, 10/22/2020 DEPRESSION SCREENING 07/27/2024 11/06/2022 INFLUENZA VACCINE (#1) 2025 Respiratory Syncytial Virus (RSV) Vaccine Pt: or over 60 yrs (1 - 1-dose 75+ series) 2036 HEPATITIS C SCREENING Completed 09/02/2020 HIV SCREENING Completed 09/02/2020 HEPATITIS B VACCINE Aged Out No longe r eligible based on patient's age to complete this topic HIB VACCINE Aged Out No longer eligi ble based on patient's age to complete this topic HPV VACCINE Aged Out No longer eligi ble based on patient's age to complete this topic MENINGOCOCCAL (Group B) VACCINE SHARED DECISION-MAKING Aged Out No longer eligible based on patient's age to complete this topic MENINGOCOCCAL GROUPS A/C/Y/W VACCINE Aged Out No longer eligible b ased on patient's age to complete this topic Procedures Procedure Name Priority Date/Time Associated Diagnosis Comments HEPATITIS C AB SCREEN RFLX NAAT QUANT STAT 09/02/2020 3:35 PM WASHHOUSE HAND HIV-1 HIV-2 ANTIGEN/ANTIBODY STAT 09/02/2020 3:35 PM WASHHOUSE HAND MAMMO BILAT SCREENING Routine 11/03/2013 12:45 PM CDT Other screening mammogram from Last 3 Months or Most Recently Relevant to Health Maintenance Results * HIV-1 HIV-2 ANTIGEN/ANTIBODY (09/02/2020 3:35 PM WASHHOUSE HAND) HIV Antigen/Antibod y 1 & 2 Non-reacti ve Non-react alyssa 09/02/2020 4:49 PM WASHHOUSE HAND [facility] Comment:Neither HIV-1 p24 An tigen nor HIV-1/HIV-2 Antibodies are detected. Blood BLOOD SPECIMEN / Unknown Venipuncture / Unknown 09/02/2020 3:35 PM WASHHOUSE HAND 09/02/2020 4:49 PM WASHHOUSE HAND us Rosie Love MD LAB - HEMATOLOGY ORDERABLES Fi nal Result Performing Organization Address City/State/[facility] de Phone Number [address] [address], [facility] [phone] * HEPATITIS C AB SCREEN RFLX NAAT QUANT (09/02/2020 3:35 PM WASHHOUSE HAND) Hepatitis C Antibody Non-react alyssa Non-reac tive 09/02/2020 4:49 PM WASHHOUSE HAND [facility] Comment:Hepatitis C Antibody screen indicates no serologic evidence of past or current infection with Hepatitis C Virus. Patients with unexplained liver disease who are immunocompromised or suspected of having acute Hepatitis C infection may benefit from Nucleic Acid Test (MANUEL) for Hepatitis C Viral RNA to confirm Hepatitis C status. Blood BLOOD SPECIMEN / Unknown Venipuncture / Unknown 09/02/2020 3:35 PM WASHHOUSE HAND 09/02/2020 4:49 PM WASHHOUSE HAND us Rosie Love MD LAB - CHEMISTRY ORDERABLES Fin al Result Performing Organization Address [facility] Co de Phone Number [address] [address], [facility] [phone] * ANGIE SCREENING DIGITAL IMAGE BILATERAL G0202 (11/03/2013 12:45 PM CDT) Anatomical Region Laterality Modality Breast Bilateral Mammography 11/04/2013 11:2 9 AM CDT Narrative 11/04/2013 11:30 AM CDT EXAMINATION: Digital screening mammogram on 11/03/13. PRIOR: 2011 FINDINGS: Computer assisted detection was utilized. The tissue density is extremely dense. This may lower the sensitivity of mammography. There is no significant change since the prior mammogram. ASSESSMENT: BIRADS Category 1: Negative mammogram. RECOMMENDATION: Follow up in one year. [facility] [place] utilizes [employer] as a reminder system to notify patients of their next recommended mammogram. Procedure Note Farnaz Rachel MD - 11/04/2013 EXAMINATION: Digital screening mammogram on 11/03/13. PRIOR: 2011 FINDINGS: Computer assisted detection was utilized. The tissue density is extremely dense. This may lower the sensitivity of mammography. There is no significant change since the prior mammogram. ASSESSMENT: BIRADS Category 1: Negative mammogram. RECOMMENDATION: Follow up in one year. [facility] utilizes [employer] as a reminder system to notify patients of their next recommended mammogram. Je Lopez MD MAMMO ORDERABLES Final Result from Last 3 Months or Most Recently Relevant to Health Maintenance Insurance [facility] Care Teams Hardware Engineering Manager Relationship Specialty Start Date End Date Greeling, Erik L, DO [address] [place] [address] PCP - General Internal Medicine 09/02/20
[2025-03-16 18:38] VITALS: BP 111/65; PULSE 56; RESP 18; O2SAT 100
== END 2025-03-16 18:54 | disposition home or self-care (01) ==
PROVIDERS: Student in an Organized Health Care Education/Training Program; Emergency Provider Physician Assistant; PCP Internal Medicine
DX: H81.10 Benign paroxysmal vertigo, unspecified ear (principal); F32.A Depression, unspecified; R94.31 Abnormal electrocardiogram [ECG] [EKG]
CPT/HCPCS: 36415; 70450; 71045; 80053; 83735; 84484; 85025; 93005; 96361; 96374; 96375; 99284; A9270; J1200; J2765; J7030

== ENCOUNTER 2025-04-10 12:46 | Outpatient (CLI) | payer OTHER, SELFPAY ==
--- NOTE | ~2025-04-10 | MM_ITS ---
EXAMINATION: MM screening tushar BI w umm HISTORY: Screening TECHNIQUE: Craniocaudal and mediolateral oblique 3-D tomosynthesis images were obtained and synthetic 2-D images were generated. CAD analysis was submitted and interpreted. COMPARISON: 10/06/2023 BREAST PARENCHYMAL COMPOSITION: The breasts are heterogeneously dense, which may obscure small masses. FINDINGS: There is no evidence of suspicious mass, calcification, or architectural distortion to suggest malignancy. There has been no suspicious interval change. IMPRESSION: 1. No mammographic evidence of malignancy. Recommend routine screening mammography in one year. BI-RADS Category 2: Benign finding(s) Reviewed, dictated and finalized at location Q. IMPRESSION: 1. No mammographic evidence of malignancy. Recommend routine screening mammogra phy in one year. BI-RADS Category 2: Benign finding(s)
--- NOTE | ~2025-04-10 | DEXA_ITS ---
Bone Density Report Name: YADIEL CUEVA Age: 64 Sex: Female Ethnicity: White Date of : 1960 Indication: postmenopausal; screening for osteoporosis; height loss; Referring Provider: SACHA HERNADEZ Study: Bone densitometry was performed. Exam Date: April 10, 2025 Accession number: [id number] Bone Density: Region BMD T-score Z-score Classification AP Spine(L1-L4) 0.668 -3.4 -1.8 Osteoporosis Femoral Neck (Left) 0.531 -2.9 -1.4 Osteoporosis Total Hip (Left) 0.718 -1.8 -0.7 Osteopenia Femoral Neck (Right) 0.523 -2.9 -1.5 Osteoporosis Total Hip (Right) 0.708 -1.9 -0.8 Osteopenia Femoral Neck Mean 0.527 -2.9 -1.5 Osteoporosis Total Hip Mean 0.713 -1.9 -0.7 Osteopenia World Health Organization criteria for BMD impression classify patients as: Normal (T-score at or above -1.0), Osteopenia (T-score between -1.0 and -2.5), or Osteoporosis (T-score at or below -2.5). 10-year Fracture Risk: FRAX not reported because: Some T-score for Spine Total or Hip Total or Femoral Neck at or below -2.5 Clinical Information Provided by Patient: Has used the following medications: HRT (i.e. estrogen/hormone therapy), Vitamin D, Calcium Patient maximum height was 66 Menopause Age: 51 No regular weight bearing exercise Does not regularly consume dairy products Drinks caffeinated beverages Onset of menses at age 14 Number of children 2 Impression: The patient has osteoporosis, based on the Total Spine T-score. Discussion: INCREASED RISK OF FRACTURE. BONE DENSITY IS UNDESIRABLY LOW AT ONE OR MORE SKELETAL SITES, CONSISTENT WITH POSTMENOPAUSAL OSTEOPOROSIS. This patient's lowest T-score meets the World Health Organization's (WHO) criteria for osteoporosis at one or more sites (T-score -2.5 or below). In untreated patients, the risk of osteoporotic fracture increases approximately two-fold for each 1.0 SD decrease in T-score. Low bone density is not the only risk factor for fracture; also consider factors such as patient's age, frailty or poor health, risk of falling, risk of injury, previous osteoporotic fracture, family history of osteoporosis, cigarette smoking, low body weight, etc. Not everyone with low bone mineral density has osteoporosis; osteomalacia and other metabolic bone disorders should also be considered. Patients who have osteoporosis should be evaluated for specific diseases and conditions (secondary causes) that may cause or contribute to bone loss. The [place] [employer]ocrin[employer] (AACE) and National Osteoporosis Foundation (NOF) recommend pharmacologic intervention for all postmenopausal women whose T-score is in this range. The patient should follow a healthful lifestyle (good nutrition with adequate calcium and vitamin D, and appropriate weight-bearing exercise). Follow-Up: Consider a repeat BMD and Vertebral Fracture Assessment (VFA) exam in 2 years or sooner if medically necessary, to reassess this patient's status. Reported by: JOEY on 04/10/2025 1:20:00 PM. Reviewed, dictated and finalized at location A.
--- OUTSIDE RECORDS SUMMARY | 2025-04-10 14:57 | XMS_ITS | Clinical Summary ---
Author Organization [facility] Address [address] [place] [address] Care Team Providers Care Epic Interface Analyst Name Role Phone Erik Mello DO Primary Care Provider [phone] Source Comments [facility],non-owned Affiliates and Associated Physician Practices is amultiple site organization consisting of ambulatory clinics and hospital sitesin [place], [place], [place] and [place]. This disclosure is being madepursuant to the Care Everywhere program and may not contain all information available regarding this patient. Last updated 18.[facility] Allergies Active Allergy Reactions Criticality Noted Date [...] fluticasone propionate (Flonase) 50 MCG/ACT nasal spray [place] 2 (two) sprays into each nostril once daily as needed Active [place]-3 Fatty Acids (fish oil) 1000 MG capsule [...] on file Legal Sex Female 2:11 PM CORRECTIONAL COUNSELOR Gender Identity Not on file Sexual Orientation Not on file Last Filed Vital Signs Vital Sign Reading Time Taken Comments Blood Pressure 106/72 11/06/2022 12:56 PM CDT Pulse 58 11/06/2022 12:56 PM CDT Temperature 36.8 C (98.2 F) 11/06/2022 12:56 PM CDT Respiratory Rate 20 09/02/2020 3:10 PM CORRECTIONAL COUNSELOR Oxygen Saturation 100% 09/02/2020 3:10 PM CORRECTIONAL COUNSELOR Inhaled Oxygen Concentration - - Weight 55.8 [...] of 2) 10/12/2011 MAMMOGRAM 11/04/2015 11/03/2013, 04/19/2012 DEPRESSION SCREENING 07/27/2024 11/06/2022 COVID-19 VACCINE (3 - 2024-2 6 season) 2025 11/12/2020, 10/22/2020 INFLUENZA VACCINE (#1) 2025 Respiratory Syncytial Virus [...] RFLX NAAT QUANT STAT 09/02/2020 3:35 PM CORRECTIONAL COUNSELOR HIV-1 HIV-2 ANTIGEN/ANTIBODY STAT 09/02/2020 3:35 PM CORRECTIONAL COUNSELOR MAMMO BILAT SCREENING Routine 11/03/2013 12:45 PM CDT Other screening mammogram from Last 3 Months or Most Recently Relevant to Health Maintenance Results * HIV-1 HIV-2 ANTIGEN/ANTIBODY (09/02/2020 3:35 PM CORRECTIONAL COUNSELOR) HIV Antigen/Antibod y 1 & 2 Non-reacti ve Non-react alyssa 09/02/2020 4:49 PM CORRECTIONAL COUNSELOR [facility] Comment:Neither HIV-1 p24 An tigen nor HIV-1/HIV-2 Antibodies are detected. Blood BLOOD SPECIMEN / Unknown Venipuncture / Unknown 09/02/2020 3:35 PM CORRECTIONAL COUNSELOR 09/02/2020 4:49 PM CORRECTIONAL COUNSELOR us Rosie Love MD LAB - HEMATOLOGY ORDERABLES Fi nal Result Performing Organization Address City/State/[facility] de Phone Number [address] [address], [facility] [phone] * HEPATITIS C AB SCREEN RFLX NAAT QUANT (09/02/2020 3:35 PM CORRECTIONAL COUNSELOR) Hepatitis C Antibody Non-react alyssa Non-reac tive 09/02/2020 4:49 PM CORRECTIONAL COUNSELOR [facility] Comment:Hepatitis C Antibody screen indicates no serologic evidence of past or current infection with Hepatitis C Virus. Patients with unexplained liver disease who are immunocompromised or suspected of having acute Hepatitis C infection may benefit from Nucleic Acid Test (MANUEL) for Hepatitis C Viral RNA to confirm Hepatitis C status. Blood BLOOD SPECIMEN / Unknown Venipuncture / Unknown 09/02/2020 3:35 PM CORRECTIONAL COUNSELOR 09/02/2020 4:49 PM CORRECTIONAL COUNSELOR us Rosie Love MD LAB - CHEMISTRY ORDERABLES Fin al Result Performing Organization Address [facility] Co de Phone Number [address] [address], [facility] [phone] * ANGIE SCREENING DIGITAL IMAGE BILATERAL [id number] [...] mammogram. RECOMMENDATION: Follow up in one year. [facility] [place] utilizes [employer] as a reminder system to notify patients [...] mammogram. RECOMMENDATION: Follow up in one year. [facility] [place] utilizes [employer] as a reminder system to notify patients of their next recommended mammogram. Je Lopez MD MAMMO ORDERABLES Final Result from Last 3 Months or Most Recently Relevant to Health Maintenance Insurance [facility] Care Teams Epic Interface Analyst Relationship Specialty Start Date End Date Greeling, Erik L, DO [address] [place] [address] PCP - General Internal Medicine 09/02/20
--- OUTSIDE RECORDS SUMMARY | 2025-04-10 14:57 | XMS_ITS | Clinical Summary ---
Author Organization [facility] Address [address] [place] [address] Care Team Providers Care Radio Machinist Name Role Phone Erik Mello MD Primary Care Provider [phone] Allergies Active Allergy Reactions Criticality Noted Date [...] of 2) 10/12/2011 COVID-19 Vaccine (3 - 2024-2 6 season) 2025 11/12/2020, 10/22/2020 RSV Immunization or 60+ Years [...] patient's age to complete this topic Insurance [facility] Care Teams Radio Machinist Relationship Specialty Start Date End Date Erik Mello MD [address] [place] [address] PCP - General INTERNAL MEDICINE 04/16/21
--- OUTSIDE RECORDS SUMMARY | 2025-04-10 14:57 | XMS_ITS | Patient Health Record ---
Author Organization [facility] [employer] Address [address] [place] [address] Care Team Providers Care Sales Contract Administrator Name Role Phone Erik Mello DO Primary Care Provider González Martinez Unavailable [phone] Reason For Referral No Information Medications Medication SIG (Take, Route, Frequency, Duration) Notes Start Date End Date Status oxyCODONE-Acetaminophe n 5-325 MG Tablet Oral Active Venlafaxine HCl ER 37.5 MG Capsule Extended Release 24 Hour Oral Active Cefuroxime Axetil 250 MG Tablet Oral Active Ondansetron HCl 4 MG Tablet Oral Active Fluticasone Propionate Diskus 50 MCG/ACT Aerosol Powder Breath Activated Inhalation *Reorder from [facility] for eRx and Interaction Alerts* Active Suprep Bowel Prep Kit 17.5-3.13-1.6 GM/177ML Solution Oral Active clonazePAM 0.5 MG Tablet Disintegrating Oral Active Azelastine HCl 137 MCG/SPRAY Solution Nasal Active Zolpidem Tartrate 5 MG Tablet Oral Active Social History Sex Assigned At : Social History Observation Description Sex Assigned At Female Social History Additional Details Category Social Info Options Details Migrated Social History Migrated Social History Tobacco Years: Never smoker 10/12/2020 Encounters Encounter Location Date Provider Diagnosis [facility] [employer] [facility] [address] [place] [address] 03/29/2025 González Mata Plan Of Treatment No Information Insurance Providers Payer Name Payer Address Payer Phone Subscriber Number Group Number Insured Name Patient Relationship to Insured Coverage Start Date Coverage End Date [facility] [address] [place] [address] [id number] ANUPAM CASTAÑEDA Spouse - patient is the spouse of the insured
== END 2025-04-10 12:47 | disposition home or self-care (01) ==
LOC: CHSIMG 12:47
PROVIDERS: PCP Nurse Practitioner; Visit Provider Nurse Practitioner
DX: Z12.31 Encounter for screening mammogram for malignant neoplasm of breast (principal); Z78.0 Asymptomatic menopausal state; M85.89 Other specified disorders of bone density and structure, multiple sites; M81.0 Age-related osteoporosis without current pathological fracture
CPT/HCPCS: 77063; 77067; 77080